=== PATIENT | male | born 1960 | race African-American/Black ===

== ENCOUNTER 2025-11-01 02:05 | Emergency (ER) | payer OTHER, SELFPAY ==
[2025-11-01 02:07] VITALS: BP 140/100
[2025-11-01 04:28] VITALS: BMI 32.7
--- NOTE | 2025-11-01 07:27 | ED.GENMED ---
History of Present Illness
General
Chief Complaint: Eye Problems
Time Seen by Provider: 11/01/25 06:24
History of Present Illness
History of Present Illness:
Nas is 65-year-old male with past medical history of hypertension who presents complaining of irritation to his right eye for 1 day after putting his contacts in his eye. Has been using eyedrops with improvement in the pain. When he noticed his
eye was slightly red this morning he wanted to be evaluated and eye doctor was not open yet.
Phy Exam
General Physical Exam
General Presentation: well appearing and no apparent distress
General Skin: warm and dry
General Habitus: normal
General Mental: alert
General Hydration: appears well hydrated
ENT Exam
ENT Exam: EOMI, pharynx normal, neck supple and normocephalic
Eye Exam
Eye Exam: PERRL, cornea clear, conjunctiva normal and other (Minimal scleral erythema to inferior lateral right eye, right sided hordeolum on lower lid)
Cardiovascular Exam
Cardiovascular Exam: regular rate/rhythm, no edema, no murmur and normal peripheral pulses
Pulmonary Exam
Pulmonary Exam: lungs clear, no respiratory distress, no rales, no crackles, no rhonchi, no stridor, no wheezing and no cough
Gastrointestinal Exam
Gastrointestinal Exam: normal bowel sounds, non tender, soft, no organomegaly, no pulsatile mass and non distended
Neurological Exam
Neurological Exam: alert, oriented x3, no motor deficits and speech normal
Musculoskeletal Exam
Musculoskeletal Exam: full ROM and no edema
Skin Exam
Skin Exam: normal color, warm/dry, no rash and no petechia
Psychiatric Exam
Psychiatric Exam: normal mood/affect
Course
Vital Signs
Initial and Last Documented VS:
Initial Vital Signs
Temp Pulse Resp BP Pulse Ox
36.6 C 85 18 140/100 100
11/01/25 02:07 11/01/25 02:07 11/01/25 02:07 11/01/25 02:07 11/01/25 02:07
Last Documented Vital Signs
Temp Pulse Resp BP Pulse Ox
36.6 C 85 18 140/100 98
11/01/25 02:07 11/01/25 02:07 11/01/25 02:07 11/01/25 02:07 11/01/25 07:28
MDM/Problems Addressed
Differential Diagnosis Includes:
There is minimal scleral erythema on exam. Patient denies any pain to the eye, no foreign body sensation. Irritation has been improving with use of eyedrops and not wearing his contacts. Recommended patient continue with supportive care. For his
right eye stye I recommended warm compresses and ophthalmology follow-up if things do not improve. No indication for any antibiotics at this time.
*Pulse Oximetry
SaO2: 98
Oxygen Mode of Delivery: Room air
Patient hypoxic: no
*Critical Care Note
Total Time (30-74mins, 75-104mins- exclusive of procedures): Not Applicable
ED Attending Note
-
Portions of this chart may have been created with voice recognition software.� Occasional wrong word or��sound alike� substitutions may have occurred due to the inherent limitations of voice recognition software.
Discharge Plan
Departure
Patient Disposition: Home (Routine Discharge)
Date of Disposition: 11/01/25
Time of Disposition: 06:43
Patient with high blood pressure during this ER visit?: No
Discharge Problem:
Hordeolum externum of right eye
Instructions: Stakanksha, Dry eye
Prescriptions:
No Action
valsartan 160 mg Tablet
160 mg PO DAILY
atorvastatin
1 tab PO DAILY
Referrals:
PRIVATE,PHYSICIAN [Family Provider, Internal Medicine]
Activity Restrictions/Additional Instructions:
You are seen in the emergency department for irritation to your eye. Continue using your eyedrops for comfort. Please follow-up with your eye doctor regarding this ER visit.
Interventions
Interventions:
*General Assessment Last Done: 12/22/25 04:29
*Neglect/Abuse Screening Last Done: 11/01/25 02:07
*ED COVID-19 Vaccine History Last Done: 11/01/25 04:29
*ED Influenza Vaccine History Last Done: 11/01/25 04:29
[facility] Risk Assessment Tool Last Done: 11/01/25 06:58
*Risk Screen - Suicide (C-SSRS) Last Done: 11/01/25 02:07
*Nursing Disposition Last Done: 11/01/25 06:58
Discharge Date and Time
Discharge Date/Time: 11/01/25 06:59
Print Language: POLISH
== END 2025-11-01 06:59 | disposition home or self-care (01) ==
LOC: EMR 02:05
PROVIDERS: EMERGENCY PHYSICIAN Emergency Medicine
DX: H00.012 Hordeolum externum right lower eyelid (principal); I10 Essential (primary) hypertension
CPT/HCPCS: 99283